=== PATIENT | female | born 1960 | race Caucasian/White ===

== ENCOUNTER 2016-09-11 06:43 | Day surgery (SDC) | payer SELFPAY ==
[2016-09-11 07:33] VITALS: BMI 273.5
[2016-09-11] MEDS ORDERED: Propofol 10 mg/ml Inj (20 ML) ONE (08:56)
[2016-09-11 10:41] VITALS: O2SAT 100
[2016-09-11 10:55] VITALS: BP 129/61; PULSE 61; RESP 19; TEMP 97
== END 2016-09-11 11:50 | disposition home or self-care (01) ==
LOC: C.ENDO 06:43
PROVIDERS: ATTEND Internal Medicine Gastroenterology
DX: Z12.11 Encounter for screening for malignant neoplasm of colon (principal); K57.30 Diverticulosis of large intestine without perforation or abscess without bleeding; K64.1 Second degree hemorrhoids
CPT/HCPCS: 45378; J2704